=== PATIENT | female | born 1965 | race Caucasian/White ===

== ENCOUNTER 2017-05-04 16:44 | Emergency (ER) | payer BC, OTHER ==
[2017-05-04 16:56] VITALS: BP 137/74; PULSE 73; TEMP 98.2; BMI 21.2
--- NOTE | 2017-05-04 17:24 | PDOC ---
History of Present Illness - General Chief Complaint: Bite Stated Complaint: INSECT BITE Time Seen by Provider: 05/04/17 17:08 History Source: Patient Exam Limitations: No Limitations - History of Present Illness Initial Comments: 05/04/17 17:18 CC stung by bee x 1 hour ago; concerned because had hives in distant past after yellow jacket sting in distant past no SOB, anaphalaxis in past for any reason Timing/Duration: denies: changing over time, getting worse Severity: Yes: mild Location: reports: extremities Respiratory Risk Factors: reports: insect sting Past History - Past Medical History Allergies/Adverse Reactions: Allergies Allergy/AdvReac Type Severity Reaction Status Date / Time aspirin Allergy Verified 05/04/17 16:54 bee venom protein (honey bee) Allergy Verified 05/04/17 16:57 Penicillins Allergy Verified 05/04/17 16:54 sulfur [From Sulfur-8] Allergy Verified 05/04/17 16:54 Home Medications: Ambulatory Orders Ranitidine HCl [Zantac] 150 mg PO DAILY 05/04/17 - Immunization History Td Vaccination: Yes - Psycho/Social/Smoking Cessation Hx Anxiety: No Suicidal Ideation: No Smoking Status: No Smoking History: Never smoked Have you smoked in the past 12 months: No Number of Cigarettes Smoked Daily: 0 Cigars Per Day: 0 Information on smoking cessation initiated: No Hx Alcohol Use: No Drug/Substance Use Hx: No Substance Use Type: None Review of Systems - Review of Systems Constitutional: No: Chills, Fever HEENTM: No: Nose Pain, Nose Congestion, Throat Pain, Throat Swelling, Difficulty Swallowing, Mouth Swelling Respiratory: No: Stridor, Wheezing Integumentary: Yes: Erythema *Physical Exam - Vital Signs Last Vital Signs Temp Pulse Resp BP Pulse Ox 98.2 F 73 18 137/74 100 05/04/17 16:54 05/04/17 16:54 05/04/17 16:54 05/04/17 16:54 05/04/17 16:54 - Physical Exam General Appearance: Yes: Appropriately Dressed. No: Apparent Distress HEENT: negative: TMs Normal, Pharynx Normal, Tonsillar Exudate, Tonsillar Erythema, Nasal Congestion, Rhinorrhea, Excessive drooling Neck: positive: Supple, Stridor. negative: Tender, Rigid Respiratory/Chest: positive: Lungs Clear, Normal Breath Sounds. negative: Respiratory Distress, Accessory Muscle Use, Labored Respiration, Stridor, Wheezing Cardiovascular: positive: Regular Rhythm, Regular Rate. negative: Murmur Integumentary: positive: Other (mild redness to area of sting left axilla/ upper inner arm; no stinger noted) Medical Decision Making - Medical Decision Making 05/04/17 17:22 pt going out for dinner and does not want benadryl if not needed; will wait x 1 hour in ED for reaction progression, this will be total of 2 hours then post sting *DC/Admit/Observation/Transfer Diagnosis at time of Disposition: Bee sting Qualifiers: Encounter type: initial encounter Injury intent: undetermined intent Qualified Code(s): T63.444A - Toxic effect of venom of bees, undetermined, initial encounter - Discharge Dispostion Disposition: HOME Condition at time of disposition: Stable Admit: No - Patient Instructions Additional Instructions: please return immediately for any new symptoms
== END 2017-05-04 17:43 | disposition home or self-care (01) ==
LOC: JERFT 16:44
DX: T63.444A Toxic effect of venom of bees, undetermined, initial encounter (principal); Y93.89 Activity, other specified; Y92.9 Unspecified place or not applicable
CPT/HCPCS: 99281-25

== ENCOUNTER 2019-02-04 07:59 | Emergency (ER) | payer BC, OTHER ==
[2019-02-04 08:07] VITALS: BMI 20.9
--- NOTE | 2019-02-04 08:26 | PDOC ---
History of Present Illness - General Chief Complaint: Syncope/Near Syncope Stated Complaint: FALL Time Seen by Provider: 02/04/19 08:26 - History of Present Illness Initial Comments: 02/04/19 08:26 Ms. Singh is a 53 yo female w/ no pmh who presents for evaluation of right arm pain and dizziness. Patient reports that she was on a chair last night to open a window when she fell down while getting off and landed on her R arm. Denies hitting her head or LOC. Currently complaining of R forearm pain. Denies any dizziness or weakness last night. Was going to go to urgent care today for an X- ray however had 2 episodes of weakness this morning while getting ready that concerned her and prompted her to call EMS. Patient reports she has had similar episodes in the past when her blood pressure got low. Also, patient endorses drinking "5 or 6" beers last night. Reports that she drinks 3-4 on a typical evening. The patient denies chest pain, shortness of breath, and headache. Denies fever, chills, nausea, vomit, diarrhea and constipation. Denies dysuria, frequency, urgency and hematuria. Past History - Past Medical History Allergies/Adverse Reactions: Allergies Allergy/AdvReac Type Severity Reaction Status Date / Time aspirin Allergy Verified 02/04/19 08:02 bee venom protein (honey bee) Allergy Verified 02/04/19 08:02 Penicillins Allergy Verified 02/04/19 08:02 sulfur [From Sulfur-8] Allergy Verified 02/04/19 08:02 Home Medications: Ambulatory Orders Ranitidine HCl [Zantac] 150 mg PO DAILY 05/04/17 Cholecalciferol (Vitamin D3) [Vitamin D3 -] 1,000 unit PO DAILY 02/04/19 Cyanocobalamin [Vitamin B12 -] 1,000 mcg PO DAILY 02/04/19 - Immunization History Td Vaccination: Yes - Suicide/Smoking/Psychosocial Hx Smoking Status: No Smoking History: Never smoked Have you smoked in the past 12 months: No Number of Cigarettes Smoked Daily: 0 Cigars Per Day: 0 Hx Alcohol Use: No Drug/Substance Use Hx: No Substance Use Type: None Review of Systems - Review of Systems Comments:: 02/04/19 08:26 GENERAL/CONSTITUTIONAL: +Self limited weakness episodes as described. No fever or chills. HEAD, EYES, EARS, NOSE AND THROAT: No change in vision. No ear pain or discharge. No sore throat. CARDIOVASCULAR: No chest pain or shortness of breath RESPIRATORY: No cough, wheezing, or hemoptysis. GASTROINTESTINAL: No nausea, vomiting, diarrhea or constipation. GENITOURINARY: No dysuria, frequency, or change in urination. MUSCULOSKELETAL: +Right forearm pain s/p fall. SKIN: No rash NEUROLOGIC: No headache, vertigo, loss of consciousness, or change in strength/ sensation. ENDOCRINE: No increased thirst. No abnormal weight change HEMATOLOGIC/LYMPHATIC: No anemia, easy bleeding, or history of blood clots. ALLERGIC/IMMUNOLOGIC: No hives or skin allergy. *Physical Exam - Vital Signs Last Vital Signs Temp Pulse Resp BP Pulse Ox 97.9 F 62 18 96/38 L 99 02/04/19 08:06 02/04/19 08:06 02/04/19 08:06 02/04/19 08:06 02/04/19 08:06 - Physical Exam Comments: 02/04/19 08:26 GENERAL: Awake, alert, and fully oriented, in no acute distress HEAD: No signs of trauma, normocephalic, atraumatic EYES: PERRLA, EOMI, sclera anicteric, conjunctiva clear ENT: Auricles normal inspection, hearing grossly normal, nares patent, oropharynx clear without exudates. Moist mucosa NECK: Normal ROM, supple, no lymphadenopathy, JVD, or masses LUNGS: No distress, speaks full sentences, clear to auscultation bilaterally HEART: Regular rate and rhythm, normal S1 and S2, no murmurs, rubs or gallops, peripheral pulses normal and equal bilaterally. ABDOMEN: Soft, nontender, normoactive bowel sounds. No guarding, no rebound. No masses EXTREMITIES: +Right forearm TTP. Wrist / proximal area appear inflamed. Otherwsie normal inspection, Normal range of motion, no edema. No clubbing or cyanosis. NEUROLOGICAL: Cranial nerves II through XII grossly intact. Normal speech, normal gait, no focal sensorimotor deficits SKIN: Warm, Dry, normal turgor, no rashes or lesions noted. ED Treatment Course - LABORATORY CBC & Chemistry Diagram: 02/04/19 09:02 02/04/19 09:02 Medical Decision Making - Medical Decision Making 02/04/19 12:26 Ms. Singh is a 53 yo female w/ pmh as described who presents for evaluation of symptoms concerning for possible fracture in the setting of fall. Patient evaluated with labs as below, RUE XR and CT head / c-spine. CT imaging negative. Labs grossly wnl. XR significant for non-displaced distal radius fracture. Discussed patient with ortho who suggested immobilization and will see in office. 02/04/19 12:44 Patient splinted. Discharging to home. *DC/Admit/Observation/Transfer Diagnosis at time of Disposition: Radial fracture Qualifiers: Encounter type: initial encounter Radius location: distal Fracture type: closed Fracture morphology: unspecified fracture morphology Laterality: right Qualified Code(s): S52.501A - Unspecified fracture of the lower end of right radius, initial encounter for closed fracture - Discharge Dispostion Disposition: HOME - Referrals Referrals: Ember Matthew MD [Primary Care Provider] - Shon Wyatt MD [Staff Physician] - - Patient Instructions Printed Discharge Instructions: DI for Distal Radius Fracture Additional Instructions: You were evaluated today in the ER after your fall and found to have a small radius fracture. We consulted with the orthopedist who recommended splinting and office follow-up. We placed you in a splint and have provided you information which you may use to follow-up this week. Please make an appointment as soon as possible. You may take over the counter motrin or tylenol per package instructions for pain control. Return to ER if any fever, chills, increase in pain, or other concerning symptoms. - Post Discharge Activity Forms/Work/School Notes: Back to Work
[2019-02-04] MEDS ORDERED: SODIUM CHLORIDE 1,000 ML IV STA (08:38)
[2019-02-04] MEDS ORDERED: ACETAMINOPHEN 500 MG TABLET (FP) PO ONE (08:40)
[2019-02-04] MEDS ORDERED: ACETAMINOPHEN 325 MG TABLET (FP) ONE (08:54)
[2019-02-04 09:15] LABS: BASO % 0.2 % (0-2.0); EOS % 0.2 % (0-4.5); HEMATOCRIT 42.6 % (32.4-45.2); HEMOGLOBIN 14.1 GM/dL (10.7-15.3); LYMPH % 10.1 % (8-40); MCH 31.3 pg (25.7-33.7); MCHC 33.1 g/dl (32.0-36.0); MEAN CELL VOLUME 94.5 fl (80-96); MEAN PLT VOLUME 8.4 fl (7.5-11.1); MONO % 4.1 % (3.8-10.2); NEUT % 85.4 % (42.8-82.8); PLATELET COUNT 229 K/MM3 (134-434); RDW 13.1 % (11.6-15.6); WHITE BLOOD COUNT 12.3 K/mm3 (4.0-10.0)
[2019-02-04 09:40] LABS: ALBUMIN 4.5 g/dl (3.4-5.0); BILIRUBIN,TOTAL 0.6 mg/dL (0.2-1); CALCIUM 9.1 mg/dL (8.5-10.1); CREATININE 0.8 mg/dL (0.55-1.3); MAGNESIUM 2.5 mg/dL (1.8-2.4); POTASSIUM 4.1 mmol/L (3.5-5.1); TOT PROT 7.2 g/dl (6.4-8.2)
--- NOTE | 2019-02-04 10:50 | PDOC ---
Documentation entered by Neeraj Garcia SCRIBE, acting as scribe for Pardeep Aguillon MD. Pardeep Aguillon MD: This documentation has been prepared by the Jose prado Daniel, SCRIBE, under my direction and personally reviewed by me in its entirety. I confirm that the documentation accurately reflects all work, treatment, procedures, and medical decision making performed by me. Attending Attestation - Resident Resident Name: Niko Guerrier - ED Attending Attestation I have performed the following: I have examined & evaluated the patient, The case was reviewed & discussed with the resident, I agree w/resident's findings & plan, Exceptions are as noted - HPI HPI: 02/04/19 10:28 The patient is a 53 year old female with no past medical history here today for evaluation of right arm pain and lightheadedness. The patient reports that she was climbing down from a chair last night when she misstepped and fell forward onto her right forearm. She denies any headstrike or loss of consciousness. Prior to the fall, she drank 6-7 beers throughout the day. She reports pain in her arm when it occurred and planned to go to urgent care this morning for evaluation. As she was getting ready this morning, she began to experience lightheadness and tunnel vision. She then sat down and broke out in a cold sweat. No LOC. She decided to take a shower afterwards and became lightheaded again for less than a minute. No associated sxs or LOC with second episode.. When this occurred again, she decided to present to the ED. She reports many similar episodes of lightheadedness in her life that self resolve, usually triggered by being hot, but she has never passed out. Patient denies headache, focal weakness/numbness. Denies fever, chills. Denies chest pain, shortness of breath. Denies nausea, vomiting, diarrhea, abdominal pain. Allergies: aspirin, bee venom protein, penicillins, sulfur PCP: Ember Matthew - Physicial Exam PE: 02/04/19 10:37 GENERAL: Awake, alert, and fully oriented, in no acute distress HEAD: No signs of trauma EYES: PERRLA, EOMI, sclera anicteric, conjunctiva clear ENT: Nares patent, oropharynx clear without exudates. Moist mucosa NECK: Normal ROM, supple, no lymphadenopathy, JVD, or masses LUNGS: Breath sounds equal, clear to auscultation bilaterally. No wheezes, and no crackles HEART: Regular rate and rhythm, normal S1 and S2, no murmurs, rubs or gallops ABDOMEN: Soft, nontender, normoactive bowel sounds. No guarding, no rebound. No masses EXTREMITIES: RUE with Normal range of motion, +edema, ttp to dorsal medial forearm with mild deformity. 2+ radial pulse. able to give okay, thumbs up, and oppose thumb. Normal distal strength and sensation. No cords, erythema, or tenderness BACK: No midline spinal tenderness in cervical/thoracic/lumbar region NEUROLOGICAL: Normal speech, cranial nerves intact, 5/5 strength in all 4 extremities, normal sensation to light touch in all 4 extremities, normal cerebellar exam, normal gait, normal tone SKIN: Warm, Dry, normal turgor, no rashes or lesions noted. - Medical Decision Making 02/04/19 10:45 53yo F with no sig PMH presents to the ED with mechanical fall last night and wrist pain, as well as lightheadedness w/o LOC this AM. On arrival BP low to 90s/30s (pt states she is usually 100s/70) and HR on EKG mildly bradycardic to 55, other vitals wnl Exam with ttp to distal forearm, otherwise wnl EKG with no concerns for arrhythmia Likely pre-syncopal 2/2 dehydration and drinking 6-7 beers yesterday. Based on history, like vagal in nature (lightheaded, tunnel vision, cold sweat, mild bradycardia and hypotension on arrival). Plan to check labs, give fluids, reassess vitals With regards to forearm pain, plan to image with XR. Will also scan head and c- spine as pt was possibly intox when she fell last night Heart Score/ECG Review #1 02/04/19 10:45 Twelve-lead EKG was performed and reviewed by me. Sinus bradycardia, rate 55. Normal axis and intervals. No ST elevations or T-wave inversions.
[2019-02-04 13:12] VITALS: BP 105/58; PULSE 65; TEMP 98
--- NOTE | 2019-02-05 09:58 | EKG ---
Test Reason : Blood Pressure : / mmHG Vent. Rate : 055 BPM Atrial Rate : 055 BPM P-R Int : 148 ms QRS Dur : 084 ms QT Int : 448 ms P-R-T Axes : 072 051 058 degrees QTc Int : 428 ms SINUS BRADYCARDIA OTHERWISE NORMAL ECG NO PREVIOUS ECGS AVAILABLE Confirmed by FRANCA JOHN MD ([id number]) on 02/05/2019 9:58:12 AM Referred By: Confirmed By:FRANCA JOHN MD
== END 2019-02-04 13:12 | disposition home or self-care (01) ==
LOC: JER 07:59
PROC: 2W3CX1Z Immobilization of Right Lower Arm using Splint (ICD-10-PCS; principal; 2019-02-04)
PROC: 3E0337Z Introduction of Electrolytic and Water Balance Substance into Peripheral Vein, Percutaneous Approach (ICD-10-PCS; 2019-02-04)
DX: S52.501A Unspecified fracture of the lower end of right radius, initial encounter for closed fracture (principal); W18.39XA Other fall on same level, initial encounter; Y93.89 Activity, other specified; Y92.89 Other specified places as the place of occurrence of the external cause
CPT/HCPCS: 36415; 70450-TC; 72125-TC; 73090-TC-RT-FY; 73110-TC-RT-FY; 73130-TC-RT-FY; 80053; 82550; 83735; 84484; 85025; 93005; 93010; 99285-25; J7030

== ENCOUNTER 2019-09-04 10:01 | Day surgery (SDC) | payer BC, OTHER ==
[2019-09-03 11:08] VITALS: BMI 20.4
--- NOTE | 2019-09-04 11:51 | HP ---
History & Physical Update - Physical Physical: No Change - Assessment Assessment: No Change - Plan Plan: No Change (H&P reviwed, no changes, for hysteroscopy , D&C , polypectomy)
[2019-09-04] MEDS ORDERED: PROPOFOL 20 ML ONE ×3 (12:53)
[2019-09-04] MEDS ORDERED: ONDANSETRON 4 MG/2 ML VIAL IVPUSH PRN ×2 (13:35→13:37)
[2019-09-04] MEDS ORDERED: oxyCODONE HCL 5 MG TABLET PO PRN ×2 (13:35→13:37)
[2019-09-04] MEDS ORDERED: ACETAMINOPHEN 325 MG TABLET (FP) PO PRN (13:35)
--- NOTE | 2019-09-04 13:43 | OP ---
Operative Note - Note: Operative Date: 09/04/19 Pre-Operative Diagnosis: PMB , EM polyp. r/o submucos myoma Operation: hysteroscopy . resection of submucos myoma,vs polyp Findings: small mass uterine cavity , r/o polyp vs submucos myoma Post-Operative Diagnosis: Same as Pre-op Surgeon: Brandon Gonsalez Anesthesiologist/[id number] DIRECTORY ASSISTANCE OPERATOR: Merritt Silverman Anesthesia: General Specimens Removed: EMC, possible submucos myoma vs fibroid Estimated Blood Loss (mls): 50 Instrument used (Debridements only): symphion resectoscope Blood Volume Replaced (mls): 0 Operative Report Dictated: Yes
[2019-09-04] MEDS ORDERED: LACTATED RINGERS SOLUTION 1,000 ML IV SCH (13:45)
[2019-09-04] MEDS ORDERED: ELECTROLYTE-148 SOLN 1,000 ML IV SCH (13:45)
[2019-09-04] MEDS ORDERED: ONDANSETRON 4 MG/2 ML VIAL ONE (14:48)
[2019-09-04] MEDS ORDERED: ONDANSETRON 4 MG/2 ML VIAL IVPUSH ONE (14:50)
[2019-09-04 15:38] VITALS: BP 142/68; PULSE 66; TEMP 98.4
--- NOTE | 2019-09-05 15:17 | PATH ---
Surgical Pathology Report Patient Name: DOMINIQUE WELLS [facility]. Rec. #: [id number] /Age/Gender: 1965 (Age: 54) / F Account: [id number] Location: [facility] SURGICAL Taken: 09/04/2019 Received: 09/04/2019 Reported: 09/05/2019 Physicians: Brandon Gonsalez M.D. Specimen(s) Received A: SUBMUCOSA MYOMA B: ENDOMETRIAL CURETTINGS Clinical History Postmenopausal bleeding Final Diagnosis A. SUBMUCOSAL MYOMA, HYSTEROSCOPIC CURETTAGE AND RESECTION: FRAGMENTS OF SMOOTH MUSCLE TISSUE, CONSISTENT WITH LEIOMYOMA. BENIGN CERVICAL (SQUAMOUS) MUCOSA. B. ENDOMETRIUM, CURETTAGE: SCANT FRAGMENTS OF SMOOTH MUSCLE TISSUE, CONSISTENT WITH LEIOMYOMA. (SEE NOTE) Note: No endometrial tissue is identified. Electronically Signed Hui Saenz M.D. Gross Description A. Received in formalin labeled "submucosal myoma," is a less than 1 g, 0.6 x 0.5 x 0.2 cm aggregate of salazar soft tissue fragments. The specimen is submitted in toto in one cassette. B. Received in formalin labeled "endometrial curettings," is a 0.3 x 0.3 x 0.1 cm aggregate of salazar-pink soft tissue fragments. The formalin is filtered and the specimen is entirely submitted in one cassette. /09/04/201909/04/2019
--- NOTE | 2019-09-07 08:25 | OP ---
DATE OF OPERATION: 09/04/2019 PREOPERATIVE DIAGNOSIS: Postmenopausal bleeding, fibroid uterus. POSTOPERATIVE DIAGNOSIS: Postmenopausal bleeding, fibroid uterus. PROCEDURE: Hysteroscopy, dilation and curettage and resection of submucous myoma. SURGEON: Brandon Gonsalez MD ANESTHESIA: General. ESTIMATED BLOOD LOSS: About 25 mL. OPERATION: Patient was taken to the operating room. Under adequate general anesthesia in dorsal lithotomy position examination under anesthesia revealed the external genitalia to be normal. Vagina was normal. Cervix was clean, no gross lesion. The uterus was normal sized and adnexa no masses were palpable. Then with a weighted speculum in the vagina anterior lip of the cervix was grasped with single-tooth tenaculum. Uterine cavity was sounded to 6 cm. The cervix was slightly dilated with Hegar dilator and then hysteroscope was introduced. Visualization of endocervical canal appeared to be normal. There was a submucous myoma obstructing the lower uterine area and then endometrium appeared to be atrophic. No other abnormality noted. Both cornual regions were identified. Then the submucous myoma was removed and then the D&C was done. A small amount of tissue was obtained. Patient tolerated procedure well, left the OR in good condition. Jay [id number]
== END 2019-09-04 15:35 | disposition home or self-care (01) ==
LOC: JASU-SURG 10:01
PROVIDERS: ATTEND Obstetrics & Gynecology
PROC: 0UJD8ZZ Inspection of Uterus and Cervix, Via Natural or Artificial Opening Endoscopic (ICD-10-PCS; 2019-09-04)
PROC: 0UB98ZZ Excision of Uterus, Via Natural or Artificial Opening Endoscopic (ICD-10-PCS; principal; 2019-09-04 12:00)
PROC: 0UDB7ZX Extraction of Endometrium, Via Natural or Artificial Opening, Diagnostic (ICD-10-PCS; 2019-09-04 12:00)
DX: N95.0 Postmenopausal bleeding (principal); D25.0 Submucous leiomyoma of uterus
CPT/HCPCS: 88305-TC; 94760

== ENCOUNTER 2021-10-05 04:51 | Day surgery (SDC) | payer BC, OTHER ==
[2021-10-01 11:34] VITALS: BMI 21.2
[2021-10-05 08:38] VITALS: TEMP 97
[2021-10-05 09:32] VITALS: BP 112/76; PULSE 63
== END 2021-10-05 09:50 | disposition home or self-care (01) ==
LOC: JASU-ENDO 04:51
PROVIDERS: ATTEND Internal Medicine Gastroenterology
PROC: 0DBP8ZX Excision of Rectum, Via Natural or Artificial Opening Endoscopic, Diagnostic (ICD-10-PCS; 2021-10-05)
PROC: 0DBK8ZX Excision of Ascending Colon, Via Natural or Artificial Opening Endoscopic, Diagnostic (ICD-10-PCS; principal; 2021-10-05 08:00)
DX: Z12.11 Encounter for screening for malignant neoplasm of colon (principal); D12.2 Benign neoplasm of ascending colon; K62.1 Rectal polyp; K57.30 Diverticulosis of large intestine without perforation or abscess without bleeding
CPT/HCPCS: 88305-TC